=== PATIENT | male | born 1965 | race African-American/Black ===

== ENCOUNTER 2018-12-26 23:01 | Inpatient (IN) | payer MEDICARE, MEDICAID ==
[~2018-12-26] VITALS: Ht 185.4 cm; Wt 142.4 kg
--- NOTE | 2018-12-27 01:00 | NUR ---
Received patient as a direct admit from [facility], report is given by Fina KAUFMAN, patient arrived via gurney, brought in by ambulance staff, patient is very sleepy, poor historian due to being very tired and wanting to sleep, patient is alert and oriented x4, skin is clean dry intact, belongings list is completed, signed by RN. Contacted MD for admit orders, awaiting call back, call light is within reach, bed is in low position, locked alarm is on, will continue to monitor for comfort and safety.
[2018-12-27 01:21] VITALS: BP 108/68
--- NOTE | 2018-12-27 03:12 | NUR ---
NURSE NOTES: RN left another message for MD, still awaiting admit orders, CN is aware.
[2018-12-27 04:00] VITALS: BP 132/74
--- NOTE | 2018-12-27 06:02 | NUR ---
NURSE NOTES: RN attempted to call MD again for the admit orders, left a message , CN and Nursing inside plant supervisor are aware.
[2018-12-27] MEDS ORDERED: D5 1/2NS 1,000 ML IV SCH (06:45)
[2018-12-27] MEDS ORDERED: cefTRIAXone 1 GM in D5W 55 ML IVPB SCH (06:45)
--- NOTE | 2018-12-27 07:38 | NUR ---
HAND-OFF: Report given to Massimo KAUFMAN.
--- NOTE | 2018-12-27 07:40 | NUR ---
NURSE NOTES: Received patient in bed,asleep but easily aroused. Not in cardia distress but noted with productive cough.afebrile. No wheezing or congestion. IV intact,no s/s of infiltration. Patient is aware of sputum and urine specimen collection. Bed is in lowest position and locked. Call light within reach. Will continue plan of care.
[2018-12-27 08:00] VITALS: BP 137/77
[2018-12-27 08:16] LABS: BASOPHILS % (AUTO) 0.7 % (0.0-2.0); EOSINOPHILS % (AUTO) 0.5 % (0.0-3.0); HEMATOCRIT 39.7 % (42.0-52.0); HEMOGLOBIN 13.4 G/DL (14.2-18.0); LYMPHOCYTES % (AUTO) 27.5 % (20.0-45.0); MEAN CORPUSCULAR VOLUME 86 FL (80-99); MONOCYTES % (AUTO) 6.1 % (1.0-10.0); NEUTROPHILS % (AUTO) 65.3 % (45.0-75.0); PLATELET COUNT 217 K/UL (150-450); RED BLOOD COUNT 4.62 M/UL (4.70-6.10); RED CELL DISTRIBUTION WIDTH 12.4 % (11.6-14.8); WHITE BLOOD COUNT 7.9 K/UL (4.8-10.8)
[2018-12-27] MEDS: HYDROcodone/Acetamin 5/325 tab ORAL PRN ×2 (08:22→15:11)
[2018-12-27] MEDS: cefTRIAXone 1 GM in D5W 55 ML IVPB SCH (08:23)
[2018-12-27] MEDS: Azithromycin 250mg tab ORAL SCH (08:23)
[2018-12-27] MEDS: D5 1/2NS 1,000 ML IV SCH ×2 (08:24→21:49)
[2018-12-27 08:25] LABS: ALANINE AMINOTRANSFERASE 23 U/L (12-78); ALBUMIN 2.7 G/DL (3.4-5.0); ALBUMIN/GLOBULIN RATIO 0.5 (1.0-2.7); ALKALINE PHOSPHATASE 67 U/L (46-116); ANION GAP 9 mmol/L (5-15); ASPARTATE AMINO TRANSFERASE 24 U/L (15-37); BILIRUBIN,TOTAL 0.5 MG/DL (0.2-1.0); BLOOD UREA NITROGEN 7 mg/dL (7-18); CALCIUM 7.9 MG/DL (8.5-10.1); CARBON DIOXIDE 21 MMOL/L (21-32); CHLORIDE 110 MMOL/L (98-107); PHOSPHORUS 2.5 MG/DL (2.5-4.9); POTASSIUM 3.3 MMOL/L (3.5-5.1); SODIUM 140 MMOL/L (136-145)
[2018-12-27] MEDS: Vancomycin 1.5gm/NS Premix IVPB SCH ×2 (10:21→21:48)
--- NOTE | 2018-12-27 10:30 | NUR ---
NURSE NOTES: Sputum collected for sputum culture and AFB and brought them to lab.
--- NOTE | 2018-12-27 10:36 | NUR ---
NURSE NOTES: Order to collect AFB sputum noted. Dr. Severino contacted to inquire if order is placed to rule out tuberculosis. Per Dr. Severino, yes order is placed to r/o TB. Infection control notified. Patient will be placed in airborne Isolation.
--- NOTE | 2018-12-27 11:36 | NUR ---
RADIOLOGY DEPT., CHEST X-RAY DONE.-P.DYE
[2018-12-27 12:00] VITALS: BP_SYST 117; BP_DIAS 16; BP_DIAS 62
[2018-12-27] MEDS ORDERED: Isovue-300 100ml vial INJ PRN (12:00)
--- NOTE | 2018-12-27 12:02 | NUR ---
NURSE NOTES: Magnesium lab result and potassium lab result relayed to Dr. Severino, with orders for 2 vials of Magnesium IV and 40 meq KCl tab PO x 1 dose. For BMP and CBC tomorrow 12/28/18. For ID consult with Dr. Fox. To collect 2 more sputum specimens for AFB smear. Patient transferred to room 417.
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
--- NOTE | 2018-12-27 12:12 | Diagnostic Imaging Report ---
Indication: Cough Technique: One view of the chest Comparison: none Findings: Lungs and pleural spaces are clear. The heart size is upper limits of normal. Impression: Negative
[2018-12-27] MEDS ORDERED: Promethazine/Codeine 5ml UD ORAL PRN (12:15)
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
--- NOTE | 2018-12-27 12:32 | History & Physical ---
History and Physical History & Physicial Dictated for Int Med-Dr Severino no [id number] Adin Peck MD Dec 27, 2018 12:32
[2018-12-27 16:00] VITALS: BP 108/65
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
[2018-12-27] MEDS: Patient's Own Med - BIKTARVY 50-200-25MG TAB ORAL SCH (18:26)
--- NOTE | 2018-12-27 19:38 | NUR ---
NURSE NOTES: Endorsed to the next shift to collect urine.
--- NOTE | 2018-12-27 19:39 | NUR ---
HAND-OFF: Report given to Rhonda.
[2018-12-27 20:00] VITALS: BP 117/71
--- NOTE | 2018-12-27 20:00 | NUR ---
NURSE NOTES: Patient received in bed, awake and alert. No signs of respiratory distress at this time. IV infusing as ordered. Aware of urine collection; clean urinal and specimen cup provided for patient. Call light in reach, instructed to call for assistance. Will continue plan of care.
[2018-12-27 23:00] LABS: APPEARANCE,URINE CLEAR; BILIRUBIN, URINE NEGATIVE (NEGATIVE); GLUCOSE, URINE (UA) NEGATIVE (NEGATIVE); KETONES,URINE NEGATIVE (NEGATIVE); LEUKOCYTE ESTERASE ,URINE NEGATIVE (NEGATIVE); NITRITE,URINE NEGATIVE (NEGATIVE); PH,URINE 6 (4.5-8.0); PROTEIN,URINE 2+ (NEGATIVE); UROBILINOGEN,URINE 8 MG/DL (0.0-1.0)
[2018-12-27 23:03] LABS: COLOR,URINE YELLOW
[2018-12-28 01:04] VITALS: BP 126/75
[2018-12-28 03:54] VITALS: BP 110/64
[2018-12-28 06:47] LABS: BASOPHILS % (AUTO) 0.7 % (0.0-2.0); EOSINOPHILS % (AUTO) 2.2 % (0.0-3.0); HEMATOCRIT 38.9 % (42.0-52.0); HEMOGLOBIN 13.1 G/DL (14.2-18.0); LYMPHOCYTES % (AUTO) 48.3 % (20.0-45.0); MEAN CORPUSCULAR VOLUME 85 FL (80-99); MONOCYTES % (AUTO) 5.9 % (1.0-10.0); NEUTROPHILS % (AUTO) 42.8 % (45.0-75.0); PLATELET COUNT 232 K/UL (150-450); RED BLOOD COUNT 4.56 M/UL (4.70-6.10); WHITE BLOOD COUNT 4.9 K/UL (4.8-10.8)
[2018-12-28 06:56] LABS: ALANINE AMINOTRANSFERASE 24 U/L (12-78); ALBUMIN 2.5 G/DL (3.4-5.0); ALBUMIN/GLOBULIN RATIO 0.5 (1.0-2.7); ALKALINE PHOSPHATASE 76 U/L (46-116); ANION GAP 7 mmol/L (5-15); ASPARTATE AMINO TRANSFERASE 25 U/L (15-37); BILIRUBIN,TOTAL 0.3 MG/DL (0.2-1.0); BLOOD UREA NITROGEN 9 mg/dL (7-18); CALCIUM 8.1 MG/DL (8.5-10.1); CARBON DIOXIDE 24 MMOL/L (21-32); CHLORIDE 110 MMOL/L (98-107); CREATININE 0.9 MG/DL (0.55-1.30); POTASSIUM 3.8 MMOL/L (3.5-5.1); SODIUM 140 MMOL/L (136-145)
--- NOTE | 2018-12-28 07:54 | NUR ---
HAND-OFF: Report given to Gwen KAUFMAN.
--- NOTE | 2018-12-28 07:57 | NUR ---
NURSE NOTES: RN received the patient in stable condition, alert and oriented. On airborne precautions. Breathing on room air. IV site on left hand patent and intact, running fluids. Denies pain or SOB at this time. Bed locked in lowest position, call light placed within reach. Will continue to monitor.
[2018-12-28 08:00] VITALS: BP 125/88
[2018-12-28] MEDS: cefTRIAXone 1 GM in D5W 55 ML IVPB SCH (09:06)
[2018-12-28] MEDS: Azithromycin 250mg tab ORAL SCH (09:06)
[2018-12-28] MEDS: Patient's Own Med - BIKTARVY 50-200-25MG TAB ORAL SCH (09:06)
[2018-12-28] MEDS: HYDROcodone/Acetamin 5/325 tab ORAL PRN (09:09)
[2018-12-28] MEDS: D5 1/2NS 1,000 ML IV SCH (10:40)
[2018-12-28] MEDS: Vancomycin 1.5gm/NS Premix IVPB SCH (11:11)
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
[2018-12-28 12:00] VITALS: BP 132/98
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
--- NOTE | 2018-12-28 15:53 | NUR ---
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 97.5 HR 74 RR 20 B/P 132/98 K 3.3 CA 7.9 MG 1.4 CXR= NO ACUTE PROCESS IS: VANCO IV CEFTRIAXONE IV IVF D5NS @ 75ML/HR ZITHROMAX PO ADMITTED TO MED/SURG MED/SURG STATUS DCP RETURN HOME
[2018-12-28 16:00] VITALS: BP 152/98
--- NOTE | 2018-12-28 16:02 | Diagnostic Imaging Report ---
Indication: Chest pain, fever and chills Technique: Continuous helical transaxial imaging of the chest was obtained from the thoracic inlet to the upper abdomen after intravenous nonionic contrast administration. Coronal 2-D reformats were also obtained. Automatic Exposure Control was utilized. Total Dose length Product (DLP): 1344.[address] Dose Index Volume (CTDIvol): 29.83 mGy Comparison: none Findings: There is a focus of consolidation involving the posterior left basal aspect of the lung suspicious for pneumonia. Small infiltrate may be present at the right lung base as well near a few cystic lesions. Remainder of the lungs appear essentially clear. There is no adenopathy. The heart is unremarkable. Few nodes seen in the axilla. The visualized upper abdomen shows a epigastric hernia containing fat, partially imaged on this examination. The hernia slightly right of midline. IMPRESSION: Suspected left basilar pneumonia and possible small infiltrate right lung base as well. Cystic foci at the right lung base. Etiology indeterminate but these may be small pneumatoceles or paraseptal blebs. No evidence of a pleural effusion/empyema. No evidence of lung abscess. Small right para midline epigastric hernia only partially seen on this examination. The CT scanner at [facility] is accredited by the [employer] and the scans are performed using dose optimization techniques as appropriate to a performed exam including Automatic Exposure control.
--- NOTE | 2018-12-28 16:08 | NUR ---
NURSE NOTES: 10am Vancomycin administered now as RN was able to get an IV in. 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
[2018-12-28] MEDS ORDERED: Vancomycin 1.5gm/NS Premix IVPB SCH (16:15)
--- NOTE | 2018-12-28 16:40 | Internal Med Progress Note ---
Subjective Date of Service: Dec 28, 2018 Physician Name LivAdin Attending Physician Mychal Severino MD Current Medications Medications (Trade) Dose Ordered Sig/Claudia Route PRN Reason Start Time Stop Time Status Last Admin Dose Admin Acetaminophen (Tylenol) 650 mg Q6H PRN ORAL Mild Pain/Temp > 100.5 12/27/18 06:45 01/26/19 06:44 Acetaminophen/ Hydrocodone Bitart ([place] 5/325) 1 tab Q6H PRN ORAL Severe Pain (Pain Scale 7-10) 12/27/18 06:45 01/03/19 06:44 12/28/18 09:09 Azithromycin (Zithromax) 250 mg DAILY ORAL 12/27/18 09:00 01/03/19 08:59 12/28/18 09:06 Ceftriaxone Sodium 1 gm/ Dextrose 55 ml @ 110 mls/hr Q24H IVPB 12/27/18 08:00 01/03/19 07:59 12/28/18 09:06 Dextrose/Sodium Chloride 1,000 ml @ 75 mls/hr [id number] IV 12/27/18 08:00 01/26/19 07:59 12/27/18 21:49 Iopamidol (Isovue-300 100ml) 100 ml NOW PRN INJ Radiology Procedure 12/27/18 12:00 12/29/18 11:58 Patient Own Medication (Patient's Own Med) 1 ea DAILY ORAL 12/27/18 18:00 01/26/19 17:59 12/28/18 09:06 Promethazine HCl/ Codeine (Phenergan with Codeine) 5 ml Q4H PRN ORAL For Cough 12/27/18 12:15 01/26/19 12:14 Vancomycin HCl (Vanco rx to dose) 1 ea DAILY PRN MISC Per rx protocol 12/27/18 06:45 01/26/19 06:44 Vancomycin HCl/ Dextrose 275 ml @ 137.5 mls/ hr Q12H IVPB 12/29/18 04:00 12/29/18 18:00 Vancomycin/Sodium Chloride 275 ml @ 137.5 mls/ hr ONCE IVPB 12/28/18 16:15 12/28/18 18:00 Vancomycin/Sodium Chloride 275 ml @ 137.5 mls/ hr Q12H IVPB 12/30/18 04:00 01/04/19 03:59 Allergies: Coded Allergies: No Known Allergies (Unverified , 12/27/18) ROS Limited/Unobtainable: No Constitutional: Reports: chills, fever HEENT: Reports: no symptoms Cardiovascular: Reports: no symptoms Respiratory: Reports: cough Gastrointestinal/Abdominal: Reports: no symptoms Genitourinary: Reports: no symptoms Neurologic/Psychiatric: Reports: no symptoms Subjective 53 YO M with HIV admitted with fever and cough. Cover for [facility]-Dr Severino. Objective Last Vital Signs Date Time Temp Pulse Resp B/P (MAP) Pulse Ox O2 Delivery O2 Flow Rate FiO2 12/28/18 12:00 97.5 74 20 132/98 (109) 98 12/28/18 09:00 Room Air 12/28/18 08:48 21 Laboratory Tests Test 12/27/18 22:50 12/28/18 05:40 Urine Color Yellow Urine Appearance Clear Urine pH 6 (4.5-8.0) Urine Specific [place] 1.015 (1.005-1.035) Urine Protein 2+ (NEGATIVE) H Urine Glucose (UA) Negative (NEGATIVE) Urine Ketones Negative (NEGATIVE) Urine Blood 1+ (NEGATIVE) H Urine Nitrite Negative (NEGATIVE) Urine Bilirubin Negative (NEGATIVE) Urine Urobilinogen 8 MG/DL (0.0-1.0) H Urine Leukocyte Esterase Negative (NEGATIVE) Urine RBC 2-4 /HPF (0 - 0) H Urine WBC 0-2 /HPF (0 - 0) Urine Squamous Epithelial Cells None /LPF (NONE/OCC) Urine Bacteria Few /HPF (NONE) White Blood Count 4.9 K/UL (4.8-10.8) Red Blood Count 4.56 M/UL (4.70-6.10) L Hemoglobin 13.1 G/DL (14.2-18.0) L Hematocrit 38.9 % (42.0-52.0) L Mean Corpuscular Volume 85 FL (80-99) Mean Corpuscular Hemoglobin 28.7 PG (27.0-31.0) Mean Corpuscular Hemoglobin Concent 33.7 G/DL (32.0-36.0) Red Cell Distribution Width 12.0 % (11.6-14.8) Platelet Count 232 K/UL (150-450) Mean Platelet Volume 5.4 FL (6.5-10.1) L Neutrophils (%) (Auto) 42.8 % (45.0-75.0) L Lymphocytes (%) (Auto) 48.3 % (20.0-45.0) H Monocytes (%) (Auto) 5.9 % (1.0-10.0) Eosinophils (%) (Auto) 2.2 % (0.0-3.0) Basophils (%) (Auto) 0.7 % (0.0-2.0) Lymphocytes Pending Sodium Level 140 MMOL/L (136-145) Potassium Level 3.8 MMOL/L (3.5-5.1) Chloride Level 110 MMOL/L (98-107) H Carbon Dioxide Level 24 MMOL/L (21-32) Anion Gap 7 mmol/L (5-15) Blood Urea Nitrogen 9 mg/dL (7-18) Creatinine 0.9 MG/DL (0.55-1.30) Estimat Glomerular Filtration Rate > 60 mL/min (>60) Glucose Level 92 MG/DL (74-106) Calcium Level 8.1 MG/DL (8.5-10.1) L Total Bilirubin 0.3 MG/DL (0.2-1.0) Aspartate Amino Transf (AST/SGOT) 25 U/L (15-37) Alanine Aminotransferase (ALT/SGPT) 24 U/L (12-78) Alkaline Phosphatase 76 U/L (46-116) Total Protein 7.5 G/DL (6.4-8.2) Albumin 2.5 G/DL (3.4-5.0) L Globulin 5.0 g/dL Albumin/Globulin Ratio 0.5 (1.0-2.7) L Percent CD3 Cells Pending Absolute CD3 Count Pending Percent CD4 Cells Pending Absolute CD4 Count Pending T-Lymphocyte CD4/CD8 Ratio Pending Percent CD8 Cells Pending Absolute CD8 Count Pending HIV-1 RNA (PCR) log10 Value Pending HIV-1 RNA Ultraquantitative (PCR) Pending Microbiology Date/Time Source Procedure Growth Status 12/28/18 00:03 Sputum Gram Stain - Final Resulted 12/28/18 00:03 Sputum Sputum Culture Pending Resulted 12/27/18 17:25 Nasopharynx - Final Complete 12/27/18 17:25 Nasopharynx - Final Complete Intake and Output 12/27/18 12/28/18 19:00 07:00 Intake Total 940.0 ml 2560.0 ml Output Total 1300 ml 300 ml Balance -360.0 ml 2260.0 ml Intake Oral 240 ml 1500 ml IV Total 700.0 ml 1060.0 ml Output Urine Total 1300 ml 300 ml # Voids 5 Objective PHYSICAL EXAMINATION: GENERAL: The patient is well nourished, well nourished, obese male, in no apparent distress. HEENT: Eyes, pupils are equal and responsive to light and accommodation. Extraocular movements are intact. NECK: Supple without lymphadenopathy. CHEST: Lungs are clear to auscultation on the right with decreased breath sounds and crackles on the left lower lobe, otherwise without wheezes. ABDOMINAL: Soft, nontender, nondistended. Positive bowel sounds. No evidence of hepatosplenomegaly. Currently, no rebound or guarding noted. CARDIOVASCULAR: Regular rhythm and rate. S1, S2 normal without murmurs, rubs, or gallops. EXTREMITIES: Negative for clubbing, cyanosis, or edema. RECTAL/GENITAL: Refused. NEUROLOGIC: Cranial nerves II through XII are grossly intact without focal deficits. Motor strength is 5/5 bilaterally. Deep tendon reflexes are 2+ plantar. Assessment/Plan Assessment/Plan ASSESSMENT: This is a 53-year-old male. 1. Fever and chills. 2. Left lower lobe pneumonia. 3. Cough. 4. HIV. 5. Homelessness. TREATMENT: 1. Left lower lobe pneumonia/fever/chills. A Pulmonary consultation has been obtained with Dr. Jelani Greenberg. A CT scan of the chest = Left greater than right basilar infiltrates. Pneumonia is concerning in a patient with HIV. He has not been taking his HIV medications. An Infectious Disease consultation has been obtained with Dr. Fox. Continue azithromycin, vanco and ceftriaxone per ID 2. HIV. As above, the patient is not taking his Biktarvy for 2 months. An Infectious Disease consultation has been obtained with Dr. Fox. 3. Homelessness. Adin Peck MD Dec 28, 2018 16:40
[2018-12-28] MEDS ORDERED: D5 1/2NS 1000ml IV ONE (16:58)
[2018-12-28] MEDS ORDERED: Tubing IV Secondary IV ONE (16:58)
--- NOTE | 2018-12-28 16:59 | NUR ---
NURSE NOTES: Patietn left AMA, refused to sign AMA papers or listen to consequences of leaving AMA. RN witnessed IV sites removed by the patient. Patient observed having his belongings with him.
[2018-12-29] MEDS ORDERED: Vancomycin 1.5gm/D5W Premix 275 ML IVPB SCH (04:00)
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
--- NOTE | 2018-12-29 13:03 | CDS Physician Query ---
Clarification is required for compliance, coding accuracy, and to reflect severity of illness for this patient Dear Jelani Lira MD Date: 12/29/2018 CDS: Cheng Lobato A diagnosis of "Pneumonia" is documented, and the patient is on: Tx: IV VANCOMYCIN Please specify the underlying etiology: [] Gram +Positive Organism(s) [] Anaerobes [] Gram -Negative Organism(s) [] Aspiration [] Pseudomonas [] Mycoplasma [] MRSA [] Not Applicable [] Other organism(s). Please specify: Present on Admission: [] Yes [] No [] Clinically Undetermined Physician signature Date Please also document in your Progress Notes and/or Discharge Summary and indicate if the condition was present on admission. MINNIED
[2018-12-30] MEDS ORDERED: Vancomycin 1.5gm/NS Premix IVPB SCH (04:00)
== END 2018-12-28 16:59 | disposition left against medical advice (07) | DRG 976 ==
LOC: 4E 12-27 00:52
DX: J18.9 Pneumonia, unspecified organism (principal); B20 Human immunodeficiency virus [HIV] disease; Z59.0 Homelessness; F17.200 Nicotine dependence, unspecified, uncomplicated; Z90.49 Acquired absence of other specified parts of digestive tract; S31.109S Unspecified open wound of abdominal wall, unspecified quadrant without penetration into peritoneal cavity, sequela; W34.00XS Accidental discharge from unspecified firearms or gun, sequela; F10.10 Alcohol abuse, uncomplicated; Z91.14 Patient's other noncompliance with medication regimen
CPT/HCPCS: 36415; 71045; 71260; 80053; 81001; 83735; 84100; 85025; 86360; 86689; 86703; 86710; 87040; 87070; 87086; 87116; 87205; 87536; 94664; J8499